=== PATIENT | female | born 1955 | race African-American/Black ===

== ENCOUNTER 2016-10-26 19:57 | Observation (INO) | payer MEDICARE, OTHER ==
[~2016-10-26] VITALS: Ht 170.2 cm; Wt 81.6 kg
[~2016-10-26 19:57] MED LIST: LORA2TAB95 PO; MYCOC15; TRIA1CAP35
[2016-10-26] MEDS ORDERED: ACETAMINOPHEN 325MG TABLET PO STA (20:28)
[2016-10-26] MEDS ORDERED: KETOROLAC 30MG/ML VIAL IV STA (20:28)
[2016-10-26] MEDS ORDERED: SODIUM CHLORIDE 0.9% 1000ML BAG (SEPSIS BOLUS) IV ONE (20:30)
[2016-10-26 20:50] LABS: BASOPHILS % 0.7 % (0.0-2.0); EOSINOPHILS % 1.5 % (0.0-5.0); HEMATOCRIT. 33.4 % (36.0-48.0); HEMOGLOBIN. 11.2 g/dL (12.0-16.0); LYMPHOCYTES % 11.6 % (20.0-50.0); MEAN CORPUSCULAR HEMOGLOBIN 29.9 pg (28.0-32.0); MEAN CORPUSCULAR VOLUME 88.9 fL (81.0-99.0); MEAN PLATELET VOLUME 7.3 fl (7.4-10.4); MONOCYTES % 11.1 % (2.0-8.0); NEUTROPHILS % 75.1 % (40.0-76.0); PLATELET 310 x1000/uL (130-400); RED BLOOD CELL COUNT 3.76 mill/uL (4.2-5.4); RED CELL DISTRIBUTION WIDTH 16.1 % (11.6-14.6)
[2016-10-26 20:53] LABS: CHLORIDE 99 mEq/L (98-107)
[2016-10-26 20:55] LABS: INR 1.1
[2016-10-26 20:59] LABS: CARBON DIOXIDE 30 mEq/L (21-32)
[2016-10-26 21:53] LABS: CLARITY URINE CLEAR (CLEAR); COLOR URINE YELLOW (YELLOW); GLUCOSE URINE NEGATIVE (NEGATIVE); KETONES URINE NEGATIVE (NEGATIVE); LEUKOCYTE ESTERASE URINE TRACE (NEGATIVE); NITRITE URINE NEGATIVE (NEGATIVE); OCCULT BLOOD URINE NEGATIVE (NEGATIVE); PH URINE 6.5 (4.5-8.0); PROTEIN URINE NEGATIVE (NEGATIVE); SPECIFIC GRAVITY URINE 1.009 (1.005-1.030); UROBILINOGEN URINE 0.2 E.U./dL (0.2-1.0)
[2016-10-26] MEDS ORDERED: MORPHINE SULFATE 4 MG/ML CPJ (NOT FOR IM USE) IV ONE (22:15)
[2016-10-26] MEDS ORDERED: IBUPROFEN 600MG TABLET PO PRN (23:15)
[2016-10-26] MEDS ORDERED: SODIUM CHLORIDE 0.9% 1,000 ML IV SCH (23:15)
[2016-10-26] MEDS ORDERED: ACETAMINOPHEN 325MG TABLET PO PRN (23:15)
[2016-10-27] VITALS (7 sets, daily range): BP systolic 144–167; BP diastolic 83–90
[2016-10-27] MEDS ORDERED: DIATR MEGLU/DIATRIZOATE SOLN 30ML PO SCH (01:30)
[2016-10-27] MEDS ORDERED: ACETAMINOPHEN 650MG SUPP PR PRN (01:30)
[2016-10-27] MEDS ORDERED: TEMAZEPAM 15MG CAPSULE PO PRN (01:30)
[2016-10-27] MEDS ORDERED: DOCUSATE SODIUM 100MG CAPSULE PO PRN (01:30)
[2016-10-27] MEDS: HYDROCODONE/ACETAMINOPHEN 5/325MG TABLET PO PRN ×6 (02:10→23:58)
[2016-10-27] MEDS: PANTOPRAZOLE 40MG DR TABLET PO SCH ×2 (02:12→08:30)
[2016-10-27] MEDS ORDERED: ATEN-42 PO (03:14)
[2016-10-27] MEDS ORDERED: CIPHCO LEFT EAR (03:16)
[2016-10-27] MEDS ORDERED: TRAM50TA3 PO (03:18)
[2016-10-27] MEDS ORDERED: HYDR-4248 TOP (03:18)
[2016-10-27] MEDS: SODIUM CHLORIDE 0.9% INJ 3ML FLUSH IVF SCH ×3 (05:41→21:37)
[2016-10-27 06:41] LABS: HEMATOCRIT. 29.4 % (36.0-48.0); HEMOGLOBIN. 9.7 g/dL (12.0-16.0); MEAN CORPUSCULAR HEMOGLOBIN 29.5 pg (28.0-32.0); MEAN CORPUSCULAR VOLUME 89.7 fL (81.0-99.0); MEAN PLATELET VOLUME 7.5 fl (7.4-10.4); PLATELET 265 x1000/uL (130-400); RED BLOOD CELL COUNT 3.28 mill/uL (4.2-5.4); RED CELL DISTRIBUTION WIDTH 16.2 % (11.6-14.6)
[2016-10-27 07:19] LABS: CARBON DIOXIDE 30 mEq/L (21-32); CHLORIDE 104 mEq/L (98-107)
[2016-10-27 08:29] LABS: PLATELET ESTIMATE NORMAL
[2016-10-27] MEDS ORDERED: IOHEXOL-300 100 ML BOTTLE ONE (11:51)
[2016-10-27] MEDS ORDERED: SODIUM CHLORIDE 0.9% 10ML VIAL ONE (11:51)
[2016-10-28] VITALS: BP 144/80
[2016-10-28 04:00] VITALS: BP 137/79
[2016-10-28] MEDS: HYDROCODONE/ACETAMINOPHEN 5/325MG TABLET PO PRN ×2 (04:13→08:03)
[2016-10-28 08:00] VITALS: BP 144/89
[2016-10-28] MEDS: PANTOPRAZOLE 40MG DR TABLET PO SCH (08:02)
[2016-10-28 08:24] VITALS: BP 144/89
== END 2016-10-28 10:00 | disposition home or self-care (01) ==
LOC: ER 21:10 → UNDOADMIN 23:14 → 7WST 23:14 → INTOOBSV 23:14
PROVIDERS: ADMIT Internal Medicine; ATTEND Internal Medicine
DX: G89.3 Neoplasm related pain (acute) (chronic) (principal); C34.90 Malignant neoplasm of unspecified part of unspecified bronchus or lung; K64.9 Unspecified hemorrhoids; K62.5 Hemorrhage of anus and rectum; R04.0 Epistaxis; F41.1 Generalized anxiety disorder; E66.9 Obesity, unspecified; I10 Essential (primary) hypertension; H40.9 Unspecified glaucoma; F17.200 Nicotine dependence, unspecified, uncomplicated; Z82.49 Family history of ischemic heart disease and other diseases of the circulatory system; Z92.3 Personal history of irradiation
CPT/HCPCS: 36415; 71010; 71270; 74178; 80048; 80053; 81001; 83605; 84443; 85025; 85610; 87040; 87086; 93005; 93970; 96361; 96374; 96375; 99285; A4216; G0378; J1885; J2270; J7030; Q9967; Q9963

== ENCOUNTER → 2017-12-09 | Outpatient (CLI) | payer MEDICARE, MEDICAID ==
[~2017-12-09] MED LIST changes: +ATEN-42 PO; +CIPHCO LEFT EAR; +HYDR-4248 TOP; +METO25TA6 PO; -MYCOC15; +PHEN1SUP42 RC; +PSEU60TA23 PO; +TRAM50TA3 PO; -TRIA1CAP35
== END | disposition home or self-care (01) ==
LOC: PF 12:03
PROVIDERS: ATTEND Internal Medicine Pulmonary Disease
DX: C34.91 Malignant neoplasm of unspecified part of right bronchus or lung (principal); J91.0 Malignant pleural effusion
CPT/HCPCS: 94060; 94727; 94729

== ENCOUNTER 2018-02-02 12:57 | Inpatient (IN) | payer MEDICARE, MEDICAID ==
[~2018-02-02] VITALS: Ht 170.2 cm; Wt 69.1 kg
[2018-02-02] MEDS ORDERED: ACETAMINOPHEN 325MG TABLET PO STA (14:45)
[2018-02-02] MEDS ORDERED: SODIUM CHLORIDE 0.9% 1,000 ML IV ONE (14:45)
[2018-02-02 16:30] LABS: CLARITY URINE CLEAR (CLEAR); COLOR URINE YELLOW (YELLOW); KETONES URINE NEGATIVE (NEGATIVE); LEUKOCYTE ESTERASE URINE NEGATIVE (NEGATIVE); NITRITE URINE NEGATIVE (NEGATIVE); OCCULT BLOOD URINE 1+ (NEGATIVE); PH URINE 7.5 (4.5-8.0); PROTEIN URINE 1+ (NEGATIVE); SPECIFIC GRAVITY URINE 1.008 (1.005-1.030); UROBILINOGEN URINE 0.2 E.U./dL (0.2-1.0)
[2018-02-02 16:34] LABS: CHLORIDE 95 mEq/L (98-107)
[2018-02-02 16:36] LABS: BASOPHILS % 0.4 % (0.0-2.0); EOSINOPHILS % 0.2 % (0.0-5.0); LYMPHOCYTES % 10.2 % (20.0-50.0); MEAN CORPUSCULAR HEMOGLOBIN 33.4 pg (28.0-32.0); MEAN CORPUSCULAR VOLUME 99.9 fL (81.0-99.0); MEAN PLATELET VOLUME 7.7 fl (7.4-10.4); MONOCYTES % 10.9 % (2.0-8.0); NEUTROPHILS % 78.3 % (40.0-76.0); PLATELET 345 x1000/uL (130-400); RED BLOOD CELL COUNT 2.71 mill/uL (4.2-5.4); RED CELL DISTRIBUTION WIDTH 18.1 % (11.6-14.6)
[2018-02-02 16:38] LABS: ETHANOL BLOOD < 10 mg/dL
[2018-02-02 16:39] LABS: D-DIMER 1.43 mg/L FEU (<0.50); INR 1.1; PARTIAL THROMBOPLASTIN TIME 27.3 sec (23.4-31.0); PROTHROMBIN TIME 11.1 sec (9.1-11.1)
[2018-02-02] MEDS ORDERED: KCL 20MEQ/100ML PREMIX 100 ML IV ONE (16:45)
[2018-02-02 16:56] LABS: *AMPHETAMINES SCREEN URINE NEGATIVE (NEGATIVE); *BARBITURATES SCREEN URINE NEGATIVE (NEGATIVE); *BENZODIAZEPINES SCREEN URINE NEGATIVE (NEGATIVE)
[2018-02-02 16:57] LABS: *COCAINE SCREEN URINE NEGATIVE (NEGATIVE); OPIATES URINE SCREEN NEGATIVE (NEGATIVE); PHENCYCLIDINE URINE SCREEN NEGATIVE (NEGATIVE)
[2018-02-02 16:58] LABS: CANNABINOID URINE SCREEN NEGATIVE (NEGATIVE); METHADONE URINE SCREEN NEGATIVE (NEGATIVE)
[2018-02-02] MEDS ORDERED: ASPIRIN 81MG TABLET PO ONE (18:00)
[2018-02-02] MEDS ORDERED: MAGNESIUM 1 G PREMIX 100 ML IV ONE (18:00)
[2018-02-02] MEDS ORDERED: LACTULOSE 20G/30ML UDC PO ONE (19:15)
[2018-02-02] MEDS ORDERED: LORAZEPAM 2MG/ML CPJ IV ONE (19:30)
[2018-02-02] MEDS ORDERED: IOHEXOL-350 100 ML BOTTLE ONE (20:15)
[2018-02-02 23:00] VITALS: BP 119/77
[2018-02-03] VITALS: BP 119/77
[2018-02-03] MEDS ORDERED: IPRATROPIUM/ALBUTEROL 0.5-3(2.5)MG/3ML NEB HHN PRN (00:15)
[2018-02-03] MEDS ORDERED: SODIUM CHLORIDE 0.45% 1,000 ML IV SCH (00:15)
[2018-02-03] MEDS ORDERED: LORAZEPAM 2 MG PO SCH (00:15)
[2018-02-03] MEDS ORDERED: GABA-529 PO (00:18)
[2018-02-03] MEDS ORDERED: HYDROCODONE/ACETAMINOPHEN 5/325MG TABLET PO PRN (00:30)
[2018-02-03] MEDS: HYDROCODONE/ACETAMINOPHEN 5/325MG TABLET PO PRN ×2 (00:55→13:37)
[2018-02-03] MEDS ORDERED: POTASSIUM CHLORIDE 20MEQ TABLET SR PO NR ×2 (01:00→22:00)
[2018-02-03] MEDS: SODIUM CHL 0.45% + KCL 20MEQ/L 1,000 ML IV SCH ×3 (02:45→20:50)
[2018-02-03 04:00] VITALS: BP 126/77
[2018-02-03] MEDS: GABAPENTIN 100MG CAPSULE PO SCH ×3 (05:12→20:50)
[2018-02-03 08:00] VITALS: BP 155/89
[2018-02-03 08:07] LABS: CHLORIDE 99 mEq/L (98-107)
[2018-02-03 08:08] LABS: BASOPHILS % 0.5 % (0.0-2.0); EOSINOPHILS % 0.6 % (0.0-5.0); HEMATOCRIT. 23.9 % (36.0-48.0); LYMPHOCYTES % 11.6 % (20.0-50.0); MEAN CORPUSCULAR HEMOGLOBIN 33.2 pg (28.0-32.0); MEAN CORPUSCULAR VOLUME 99.4 fL (81.0-99.0); MEAN PLATELET VOLUME 7.6 fl (7.4-10.4); MONOCYTES % 11.2 % (2.0-8.0); NEUTROPHILS % 76.1 % (40.0-76.0); PLATELET 352 x1000/uL (130-400); RED BLOOD CELL COUNT 2.41 mill/uL (4.2-5.4); RED CELL DISTRIBUTION WIDTH 17.9 % (11.6-14.6)
[2018-02-03 08:21] LABS: LDL CHOLESTEROL 99 mg/dL (5-100)
[2018-02-03 08:22] LABS: HDL CHOLESTEROL 58 mg/dL (40-59)
[2018-02-03 08:23] LABS: T4 FREE 0.97 ng/dL (0.76-1.46)
[2018-02-03] MEDS: ATENOLOL 25MG TABLET PO SCH ×2 (08:38→20:50)
[2018-02-03] MEDS: ENOXAPARIN 40MG/0.4ML SYR SUBCUT SCH (08:39)
[2018-02-03] MEDS ORDERED: MEDICATION NOT ON FORMULARY EA (Atenolol 25 MG) PO SCH (09:00)
[2018-02-03] MEDS ORDERED: MEDICATION NOT ON FORMULARY EA (Gabapentin 100 MG) PO SCH (09:00)
[2018-02-03 11:16] LABS: BG BASE EXCESS 5.5 mmol/L (-2.0-2.0); BG CARBOXYHEMOGLOBIN 0.7 % (0.5-1.5); BG DEOXYHEMOGLOBIN 4.3 % (0.0-5.0); BG HCO3 ACT 29.2 mmol/L (22.0-26.0); BG METHEMOGLOBIN 0.2 % (0.0-1.5); BG OXYGEN SATURATION 95.7 % (92.0-98.5); BG OXYHEMOGLOBIN 94.8 % (94.0-97.0); BG PCO2 38.9 mmHg (35.0-45.0); BG PH 7.494 (7.350-7.450); BG PO2 76.3 mmHg (75.0-100.0); BG SAMPLE SITE RIGHT RADIAL; BG VENT MODE ROOM AIR
[2018-02-03 12:00] VITALS: BP 123/83
[2018-02-03] MEDS ORDERED: POTASSIUM CHLORIDE INJ 40 MEQ in DEXT 5% WATER 250 ML IV NR (12:00)
[2018-02-03] MEDS ORDERED: LIDOCAINE HCL/PF 1% 2ML VIAL ONE (14:36)
[2018-02-03 16:00] VITALS: BP 134/77
[2018-02-03] MEDS: LORAZEPAM 1MG TABLET PO PRN (19:01)
[2018-02-03 20:00] VITALS: BP 143/82
[2018-02-03] MEDS ORDERED: ACETAMINOPHEN 325MG TABLET PO SCH (22:47)
[2018-02-03] MEDS ORDERED: DIPHENHYDRAMINE 25MG CAPSULE PO SCH (22:49)
[2018-02-03] MEDS ORDERED: FUROSEMIDE 20MG/2ML VIAL IVP SCH (23:30)
[2018-02-03] MEDS ORDERED: PAMIDRONATE DISODIUM 90 MG in SODIUM CHLORIDE 0.9% 1,000 ML IV NR (23:30)
[2018-02-04 00:02] VITALS: BP 126/74
[2018-02-04] MEDS: LORAZEPAM 1MG TABLET PO PRN ×2 (03:20→12:12)
[2018-02-04 04:55] VITALS: BP 140/79
[2018-02-04] MEDS: GABAPENTIN 100MG CAPSULE PO SCH ×3 (05:28→21:16)
[2018-02-04 06:58] LABS: MEAN CORPUSCULAR HEMOGLOBIN 33.3 pg (28.0-32.0); MEAN CORPUSCULAR VOLUME 100.3 fL (81.0-99.0); PLATELET 395 x1000/uL (130-400); RED BLOOD CELL COUNT 2.69 mill/uL (4.2-5.4)
[2018-02-04 07:57] LABS: CHLORIDE 101 mEq/L (98-107)
[2018-02-04 08:00] VITALS: BP 178/101
[2018-02-04] MEDS: SODIUM CHL 0.45% + KCL 20MEQ/L 1,000 ML IV SCH (08:00)
[2018-02-04] MEDS ORDERED: POTASSIUM CHLORIDE 20MEQ TABLET SR PO SCH (09:00)
[2018-02-04] MEDS: ATENOLOL 25MG TABLET PO SCH ×2 (09:42→21:16)
[2018-02-04] MEDS: ENOXAPARIN 40MG/0.4ML SYR SUBCUT SCH (09:43)
[2018-02-04] MEDS ORDERED: MAGNESIUM 2 G PREMIX 50 ML IV SCH (10:00)
[2018-02-04 13:28] LABS: CHLORIDE 102 mEq/L (98-107)
[2018-02-04 16:00] VITALS: BP 135/78
[2018-02-04] MEDS: HYDROCODONE/ACETAMINOPHEN 5/325MG TABLET PO PRN (21:16)
[2018-02-05 00:08] VITALS: BP 153/69
[2018-02-05] MEDS: SODIUM CHL 0.45% + KCL 20MEQ/L 1,000 ML IV SCH (02:34)
[2018-02-05] MEDS: HYDROCODONE/ACETAMINOPHEN 5/325MG TABLET PO PRN ×3 (02:34→18:33)
[2018-02-05 04:00] VITALS: BP 121/75
[2018-02-05] MEDS: GABAPENTIN 100MG CAPSULE PO SCH ×3 (06:52→21:00)
[2018-02-05 08:00] VITALS: BP 135/55
[2018-02-05 08:15] LABS: HEMATOCRIT 26.1 % (36.0-48.0); HEMOGLOBIN 8.7 g/dL (12.0-16.0); MEAN CORPUSCULAR HEMOGLOBIN 33.1 pg (28.0-32.0); MEAN CORPUSCULAR VOLUME 99.4 fL (81.0-99.0); PLATELET 368 x1000/uL (130-400); RED BLOOD CELL COUNT 2.63 mill/uL (4.2-5.4); RED CELL DISTRIBUTION WIDTH 17.4 % (11.6-14.6)
[2018-02-05] MEDS ORDERED: LOPERAMIDE HCL 2MG CAPSULE PO PRN (08:30)
[2018-02-05 08:54] LABS: CHLORIDE 102 mEq/L (98-107)
[2018-02-05] MEDS: POTASSIUM CHLORIDE 20MEQ TABLET SR PO SCH (10:02)
[2018-02-05] MEDS: ATENOLOL 25MG TABLET PO SCH ×2 (10:02→20:36)
[2018-02-05] MEDS: ENOXAPARIN 40MG/0.4ML SYR SUBCUT SCH (10:02)
[2018-02-05 10:21] LABS: VITAMIN B12 SERUM 417 pg/mL (211-911)
[2018-02-05] MEDS ORDERED: POTASSIUM CHLORIDE 20MEQ TABLET SR PO NR (10:30)
[2018-02-05 12:00] VITALS: BP 128/58
[2018-02-05 16:00] VITALS: BP 114/74
[2018-02-05 20:00] VITALS: BP 128/62
[2018-02-06] VITALS (7 sets, daily range): BP systolic 98–125; BP diastolic 56–76
[2018-02-06] MEDS: HYDROCODONE/ACETAMINOPHEN 5/325MG TABLET PO PRN ×4 (01:03→20:06)
[2018-02-06] MEDS: LORAZEPAM 1MG TABLET PO PRN ×2 (01:40→14:45)
[2018-02-06] MEDS: GABAPENTIN 100MG CAPSULE PO SCH ×3 (05:56→22:05)
[2018-02-06 06:57] LABS: HEMATOCRIT 25.4 % (36.0-48.0); HEMOGLOBIN 8.5 g/dL (12.0-16.0); MEAN CORPUSCULAR HEMOGLOBIN 32.8 pg (28.0-32.0); MEAN CORPUSCULAR VOLUME 98.1 fL (81.0-99.0); PLATELET 341 x1000/uL (130-400); RED BLOOD CELL COUNT 2.58 mill/uL (4.2-5.4); RED CELL DISTRIBUTION WIDTH 17.2 % (11.6-14.6)
[2018-02-06 07:01] LABS: CHLORIDE 100 mEq/L (98-107)
[2018-02-06] MEDS ORDERED: POTASSIUM CHLORIDE 20MEQ TABLET SR PO SCH ×2 (08:30→12:30)
[2018-02-06] MEDS: POTASSIUM CHLORIDE 20MEQ TABLET SR PO SCH (08:47)
[2018-02-06] MEDS: ENOXAPARIN 40MG/0.4ML SYR SUBCUT SCH (08:55)
[2018-02-06] MEDS: ATENOLOL 25MG TABLET PO SCH ×2 (09:00→22:05)
[2018-02-06] MEDS: METRONIDAZOLE 500MG TABLET PO SCH ×2 (14:48→22:05)
== END 2018-02-07 00:34 | DRG 180 ==
LOC: ER 12:57 → EDBEDREQ 21:23 → EDBEDREQTM 21:23 → ENRESERV 22:02 → 7WST 22:45
PROVIDERS: ADMIT Internal Medicine; ATTEND Internal Medicine
DX: C34.11 Malignant neoplasm of upper lobe, right bronchus or lung (principal); G93.41 Metabolic encephalopathy; C79.51 Secondary malignant neoplasm of bone; E72.20 Disorder of urea cycle metabolism, unspecified; D68.59 Other primary thrombophilia; E44.0 Moderate protein-calorie malnutrition; R59.9 Enlarged lymph nodes, unspecified; E83.42 Hypomagnesemia; F32.9 Major depressive disorder, single episode, unspecified; E83.52 Hypercalcemia; I10 Essential (primary) hypertension; R06.03 Acute respiratory distress; D64.9 Anemia, unspecified; E87.6 Hypokalemia; R07.89 Other chest pain; Z79.899 Other long term (current) drug therapy; Z68.23 Body mass index [BMI] 23.0-23.9, adult
CPT/HCPCS: 36415; 36600; 70551; 71045; 71275; 80048; 80061; 80305; 82140; 82375; 82607; 82805; 82962; 83735; 83880; 84132; 84439; 84443; 84484; 85027; 85379; 86850; 86900; 86920; 87493; 93005; 93880; 93970; 96365; 96366; 97162; 97530; 99285; G0482; J1650; J2060; J2430; J3475; J3480; J3490; J7030; J7040; J7060; Q9967

== ENCOUNTER 2018-02-28 23:05 | Inpatient (IN) | payer OTHER, MEDICAID ==
[~2018-02-28] VITALS: Ht 167.6 cm; Wt 68.0 kg
[~2018-02-28 23:05] MED LIST changes: -CIPHCO LEFT EAR; +GABA-529 PO; -HYDR-4248 TOP; -PHEN1SUP42 RC; -PSEU60TA23 PO
[2018-02-28] MEDS ORDERED: SODIUM CHLORIDE 0.9% 1,000 ML IV ONE (23:38)
[2018-03-01] MEDS ORDERED: ONDANSETRON HCL 4MG/2ML INJ IV ONE
[2018-03-01] MEDS ORDERED: MORPHINE SULFATE 10 MG/ML CPJ IV ONE
[2018-03-01 00:37] LABS: CHLORIDE 92 mEq/L (98-107); INR 1.2; PROTHROMBIN TIME 11.7 sec (9.1-11.1)
[2018-03-01 00:40] LABS: HEMOGLOBIN. 7.7 g/dL (12.0-16.0); MEAN CORPUSCULAR HEMOGLOBIN 31.1 pg (28.0-32.0); MEAN CORPUSCULAR VOLUME 96.4 fL (81.0-99.0); MEAN PLATELET VOLUME 8.7 fl (7.4-10.4); PLATELET 415 x1000/uL (130-400); RED BLOOD CELL COUNT 2.49 mill/uL (4.2-5.4); RED CELL DISTRIBUTION WIDTH 14.9 % (11.6-14.6)
[2018-03-01 02:06] LABS: ATYPICAL LYMPHOCYTES 1
[2018-03-01 02:07] LABS: PLATELET ESTIMATE NORMAL
[2018-03-01] MEDS ORDERED: HYDROMORPHONE HCL/PF 2MG/ML CPJ IV ONE (02:15)
[2018-03-01 10:23] VITALS: BP 116/75
[2018-03-01] MEDS ORDERED: DEXT 5%/0.45% NACL 1000ML 1,000 ML IV SCH (11:15)
[2018-03-01 12:00] VITALS: BP 135/77
[2018-03-01] MEDS: MORPHINE SULFATE 4 MG/ML CPJ (NOT FOR IM USE) IV PRN ×2 (12:17→16:35)
[2018-03-01 13:50] LABS: HEMATOCRIT 28.8 % (36.0-48.0); HEMOGLOBIN 9.5 g/dL (12.0-16.0)
[2018-03-01 16:00] VITALS: BP 104/67
[2018-03-01 16:47] LABS: HEMATOCRIT 27.7 % (36.0-48.0); HEMOGLOBIN 9.2 g/dL (12.0-16.0)
[2018-03-01] MEDS ORDERED: HYDROMORPHONE HCL/PF 2MG/ML CPJ IM PRN (19:45)
[2018-03-01 20:00] VITALS: BP 111/67
[2018-03-01] MEDS: PANTOPRAZOLE 40MG DR TABLET PO SCH ×2 (20:07→21:01)
[2018-03-01 20:27] LABS: HEMOGLOBIN 9.1 g/dL (12.0-16.0)
[2018-03-01] MEDS ORDERED: KCL 20MEQ/100ML PREMIX 100 ML IV NR (21:00)
[2018-03-01] MEDS: HYDROMORPHONE HCL/PF 2MG/ML CPJ IV PRN (21:01)
[2018-03-02] VITALS: BP 114/75
[2018-03-02] MEDS ORDERED: LEVOFLOXACIN 500MG PREMIX 100 ML IV SCH ×2 (00:15→02:00)
[2018-03-02] MEDS ORDERED: PIPERACILLIN/TAZOBACTAM 3.375GM/50ML PREMIX IV SCH (00:15)
[2018-03-02 01:22] LABS: HEMATOCRIT 28.5 % (36.0-48.0); HEMOGLOBIN 9.4 g/dL (12.0-16.0)
[2018-03-02] MEDS: PIPERACILLIN/TAZ 3.375G PREMIX 50 ML IV SCH ×4 (01:30→18:37)
[2018-03-02 04:00] VITALS: BP 99/70
[2018-03-02] MEDS: HYDROMORPHONE HCL/PF 2MG/ML CPJ IV PRN ×4 (04:35→21:30)
[2018-03-02 07:54] LABS: HEMATOCRIT. 28.9 % (36.0-48.0); HEMOGLOBIN. 9.3 g/dL (12.0-16.0); MEAN CORPUSCULAR HEMOGLOBIN 30.7 pg (28.0-32.0); PLATELET 375 x1000/uL (130-400); RED BLOOD CELL COUNT 3.01 mill/uL (4.2-5.4); RED CELL DISTRIBUTION WIDTH 16.4 % (11.6-14.6)
[2018-03-02 08:00] VITALS: BP 109/71
[2018-03-02] MEDS: PANTOPRAZOLE 40MG DR TABLET PO SCH ×2 (09:59→21:08)
[2018-03-02 12:00] VITALS: BP 123/81
[2018-03-02] MEDS ORDERED: IOHEXOL-300 100 ML BOTTLE ONE (12:28)
[2018-03-02 14:14] LABS: PLATELET ESTIMATE NORMAL
[2018-03-02] MEDS ORDERED: ACETAMINOPHEN 650MG SUPP PR PRN (15:45)
[2018-03-02] MEDS ORDERED: ACETAMINOPHEN 325MG TABLET PO PRN (15:45)
[2018-03-02] MEDS ORDERED: DOCUSATE SODIUM 100MG CAPSULE PO PRN (15:45)
[2018-03-02] MEDS ORDERED: ONDANSETRON HCL 4MG/2ML INJ IV PRN (15:45)
[2018-03-02] MEDS ORDERED: DIPHENHYDRAMINE 50MG/ML VIAL IV PRN (15:45)
[2018-03-02 16:59] LABS: HEMATOCRIT 30.3 % (36.0-48.0); HEMOGLOBIN 9.9 g/dL (12.0-16.0)
[2018-03-02 17:06] LABS: CHLORIDE 97 mEq/L (98-107)
[2018-03-02] MEDS ORDERED: PAMIDRONATE DISODIUM 60 MG in SODIUM CHLORIDE 0.9% 500 ML IV NR (18:00)
[2018-03-02] MEDS: SODIUM CHLORIDE 0.9% 1,000 ML IV SCH (18:40)
[2018-03-02 19:39] LABS: CLARITY URINE CLOUDY (CLEAR); COLOR URINE YELLOW (YELLOW); KETONES URINE NEGATIVE (NEGATIVE); LEUKOCYTE ESTERASE URINE 3+ (NEGATIVE); NITRITE URINE NEGATIVE (NEGATIVE); OCCULT BLOOD URINE 2+ (NEGATIVE); PROTEIN URINE TRACE (NEGATIVE); SPECIFIC GRAVITY URINE 1.036 (1.005-1.030); UROBILINOGEN URINE 0.2 E.U./dL (0.2-1.0)
[2018-03-02 20:00] VITALS: BP 100/52
[2018-03-02 20:31] LABS: HEMATOCRIT 26.4 % (36.0-48.0); HEMOGLOBIN 8.6 g/dL (12.0-16.0)
[2018-03-02] MEDS: HEMORRHOIDAL SUPP PR SCH (21:07)
[2018-03-02] MEDS: HYDROCORTISONE 1% RECTAL CREAM 30GM PR SCH (21:08)
[2018-03-02] MEDS ORDERED: HYDROCODONE/ACETAMINOPHEN 5/325MG TABLET PO PRN (21:15)
[2018-03-03] VITALS: BP 108/80
[2018-03-03] MEDS: HYDROMORPHONE HCL/PF 2MG/ML CPJ IV PRN ×2 (01:34→08:33)
[2018-03-03] MEDS: PIPERACILLIN/TAZ 3.375G PREMIX 50 ML IV SCH ×4 (01:34→18:06)
[2018-03-03 04:00] VITALS: BP 124/74
[2018-03-03 06:54] LABS: HEMATOCRIT 25.8 % (36.0-48.0); HEMOGLOBIN 8.5 g/dL (12.0-16.0); MEAN CORPUSCULAR HEMOGLOBIN 31.1 pg (28.0-32.0); MEAN CORPUSCULAR VOLUME 94.9 fL (81.0-99.0); PLATELET 401 x1000/uL (130-400); RED BLOOD CELL COUNT 2.71 mill/uL (4.2-5.4); RED CELL DISTRIBUTION WIDTH 15.9 % (11.6-14.6)
[2018-03-03 07:12] LABS: CHLORIDE 101 mEq/L (98-107)
[2018-03-03 07:25] LABS: TOTAL IRON BINDING CAPACITY 112 ug/dL (250-450)
[2018-03-03 08:00] VITALS: BP 128/77
[2018-03-03] MEDS: HEMORRHOIDAL SUPP PR SCH (08:33)
[2018-03-03] MEDS: HYDROCORTISONE 1% RECTAL CREAM 30GM PR SCH (08:33)
[2018-03-03] MEDS: PANTOPRAZOLE 40MG DR TABLET PO SCH (08:33)
[2018-03-03] MEDS ORDERED: POTASSIUM CHLORIDE 20MEQ TABLET SR PO NR (11:15)
[2018-03-03] MEDS ORDERED: FOLIC ACID 1MG TABLET PO SCH (11:45)
[2018-03-03 12:00] VITALS: BP 122/78
[2018-03-03] MEDS ORDERED: HYDROMORPHONE HCL/PF 2MG/ML CPJ IV PRN (12:45)
[2018-03-03] MEDS: SODIUM CHLORIDE 0.9% 1,000 ML IV SCH (12:56)
[2018-03-03] MEDS ORDERED: LACTULOSE 20G/30ML UDC PO NR (13:00)
[2018-03-03] MEDS ORDERED: METOPROLOL TARTRATE 25MG TABLET PO NR (13:00)
[2018-03-03] MEDS ORDERED: HYDROMORPHONE HCL/PF 2MG/ML CPJ IV NR (15:50)
[2018-03-03 16:00] VITALS: BP 121/79
[2018-03-03 16:58] LABS: HEMATOCRIT 27.7 % (36.0-48.0); HEMOGLOBIN 9.1 g/dL (12.0-16.0)
[2018-03-03 17:13] LABS: PHOSPHORUS 2.1 mg/dL (2.5-4.9)
[2018-03-03] MEDS ORDERED: POTASSIUM-SODIUM PHOSPHATE POWDER PACKET PO NR (17:30)
[2018-03-03 18:28] VITALS: BP 121/79
[2018-03-03] MEDS ORDERED: METOPROLOL TARTRATE 25MG TABLET PO SCH (21:00)
[2018-03-03] MEDS ORDERED: CARVEDILOL 3.125 MG TABLET PO SCH (21:00)
== END 2018-03-03 19:03 | DRG 394 ==
LOC: ER 23:05 → 7WST 03-01 03:21 → EDBEDREQ 03-01 03:26 → ENRESERV 03-01 07:42
PROVIDERS: ADMIT Internal Medicine; ATTEND Internal Medicine
PROC: 30233N1 Transfusion of Nonautologous Red Blood Cells into Peripheral Vein, Percutaneous Approach (ICD-10-PCS; principal; 2018-03-01)
DX: K64.9 Unspecified hemorrhoids (principal); D68.59 Other primary thrombophilia; C34.90 Malignant neoplasm of unspecified part of unspecified bronchus or lung; N39.0 Urinary tract infection, site not specified; C79.51 Secondary malignant neoplasm of bone; R65.10 Systemic inflammatory response syndrome (SIRS) of non-infectious origin without acute organ dysfunction; E44.0 Moderate protein-calorie malnutrition; D64.9 Anemia, unspecified; E83.52 Hypercalcemia; E87.6 Hypokalemia; E88.09 Other disorders of plasma-protein metabolism, not elsewhere classified; F32.9 Major depressive disorder, single episode, unspecified; F20.9 Schizophrenia, unspecified; I10 Essential (primary) hypertension; R07.89 Other chest pain; R06.03 Acute respiratory distress; G89.3 Neoplasm related pain (acute) (chronic)
CPT/HCPCS: 36415; 36430; 71045; 74018; 74177; 80048; 82140; 82607; 82728; 82746; 83540; 83550; 83735; 84100; 84484; 85014; 85018; 85027; 85044; 86850; 86900; 86920; 93005; 96374; 96375; 99285; J1170; J1956; J2270; J2405; J2430; J2543; J3480; J3490; J7030; J7040; J7050; P9016; Q9967

== ENCOUNTER 2018-03-20 20:14 | Emergency (ER) | payer MEDICARE, MEDICAID ==
[~2018-03-20] VITALS: Ht 165.1 cm; Wt 59.0 kg
[~2018-03-20 20:14] MED LIST changes: -ATEN-42 PO; -TRAM50TA3 PO
[2018-03-20] MEDS ORDERED: SODIUM CHLORIDE 0.9% 1,000 ML IV ONE (20:57)
[2018-03-20 21:45] LABS: BASOPHILS % 0.4 % (0.0-2.0); EOSINOPHILS % 1.9 % (0.0-5.0); HEMATOCRIT. 31.7 % (36.0-48.0); HEMOGLOBIN. 10.6 g/dL (12.0-16.0); LYMPHOCYTES % 13.8 % (20.0-50.0); MEAN CORPUSCULAR HEMOGLOBIN 30.9 pg (28.0-32.0); MEAN CORPUSCULAR VOLUME 92.7 fL (81.0-99.0); MEAN PLATELET VOLUME 7.3 fl (7.4-10.4); MONOCYTES % 9.9 % (2.0-8.0); PLATELET 566 x1000/uL (130-400); RED BLOOD CELL COUNT 3.42 mill/uL (4.2-5.4); RED CELL DISTRIBUTION WIDTH 15.8 % (11.6-14.6)
[2018-03-20 21:48] LABS: CHLORIDE 97 mEq/L (98-107)
[2018-03-20 21:53] LABS: ETHANOL BLOOD < 10 mg/dL
[2018-03-20 21:54] LABS: INR 1.1; PARTIAL THROMBOPLASTIN TIME 29.3 sec (23.4-31.0); PROTHROMBIN TIME 10.8 sec (9.1-11.1)
[2018-03-21 00:09] LABS: *AMPHETAMINES SCREEN URINE NEGATIVE (NEGATIVE); *BARBITURATES SCREEN URINE NEGATIVE (NEGATIVE); *BENZODIAZEPINES SCREEN URINE NEGATIVE (NEGATIVE); *COCAINE SCREEN URINE NEGATIVE (NEGATIVE)
[2018-03-21 00:10] LABS: CANNABINOID URINE SCREEN NEGATIVE (NEGATIVE); METHADONE URINE SCREEN NEGATIVE (NEGATIVE); OPIATES URINE SCREEN PRESUMTIVE POSITIVE (NEGATIVE); PHENCYCLIDINE URINE SCREEN NEGATIVE (NEGATIVE)
[2018-03-21] MEDS ORDERED: POTASSIUM CHLORIDE 20MEQ TABLET SR PO ONE (00:45)
[2018-03-21] MEDS ORDERED: SODIUM CHLORIDE 0.9% 1,000 ML IV ONE (00:45)
[2018-03-21 02:23] VITALS: BP 135/93
[2018-03-21] MEDS ORDERED: HYDROCODONE/ACETAMINOPHEN 10/325MG TABLET PO ONE (02:30)
== END 2018-03-21 02:15 | disposition short-term general hospital (02) ==
LOC: ER 20:14 → CANBEDREQ 03-21 03:58
DX: R53.1 Weakness (principal); R00.0 Tachycardia, unspecified; E87.6 Hypokalemia; E83.52 Hypercalcemia; C34.90 Malignant neoplasm of unspecified part of unspecified bronchus or lung
CPT/HCPCS: 36415; 71045; 80053; 80305; 82962; 83605; 83690; 83880; 84145; 84484; 85025; 85610; 85730; 87040; 87086; 87186; 93005; 96360; 96361; 99285; J7030